=== PATIENT | female | born 1985 | race Caucasian/White ===

== ENCOUNTER 2020-05-07 20:25 | Outpatient (CLI) | payer BC, OTHER ==
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
[2020-05-08 02:06] VITALS: BP 129/83; PULSE 94; RESP 18; TEMP 96.8
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
== END 2020-05-08 01:08 | disposition home or self-care (01) ==
LOC: FBPOP 20:25
PROVIDERS: ATTEND Obstetrics & Gynecology
DX: O16.2 Unspecified maternal hypertension, second trimester (principal); V43.52XA Car driver injured in collision with other type car in traffic accident, initial encounter
CPT/HCPCS: 99213

== ENCOUNTER 2020-06-10 17:35 | Outpatient (CLI) | payer BC, OTHER ==
[2020-06-10 18:52] VITALS: BP 113/69; PULSE 88; RESP 16; TEMP 97.5
--- NOTE | 2020-06-16 06:47 | P.MSEPDOC ---
Presenting Problems - Arrival Data Date of Arrival on Unit: 06/10/20 Time of Arrival on Unit: 17:35 Mode of Transport: Ambulatory - Complaint OB-Reason for Admission/Chief Complaint: Observation/Evaluation Comment: Mucus discharge and sharp shooting pain in vagina Medical History - Information : 3 Para: 2 Term: 2 : 0 Abortions: Spontaneous or Elective: 0 Number of Living Children: 2 - Gestational Age Gestational Age by CHRISTINA (wks/days): 29 Weeks and 2 Days - History Complications: Prior Review of Systems - Review of Systems Constitutional: No problems Breast: No problems ENT: No problems Cardiovascular: No problems Respiratory: No problems Gastrointestinal: No problems Genitourinary: No problems Musculoskeletal: No problems Neurological: No problems Skin: No problems Vital Signs - Temperature Temperature: 97.5 F Temperature Source: Temporal Artery Scan - Pulse Right Sitting Brachial Pulse Rate: 88 Pulse Assessment Method: Automatic Cuff - Respirations Respiratory Rate: 16 Oxygen Delivery Method: Room Air O2 Sat by Pulse Oximetry: 98 - Blood Pressure Right Arm Sitting Blood Pressure: 113/69 Blood Pressure Mean: 83 Blood Pressure Source: Automatic Cuff Medical Screen Scoring (Pre) - Cervical Exam Dilation: Exam Deferred Effacement: Exam Deferred Membranes: Intact - Uterine Contractions Frequency: N/A Duration: N/A Intensity: N/A - Maternal Vital Signs Maternal Temperature: N/A Maternal Blood Pressure: N/A Signs of Preeclampsia: N/A Maternal Respirations: N/A - Maternal Trauma Maternal Trauma: N/A - Assessment - Baby A Baseline FHR: 135 Heart Rate - NICHD Category: Category I (Normal) = 0 NST: Reactive Position: N/A Station: N/A - Total Score - Baby A Total Score - Baby A: 0 - Total Score - Baby B Total Score - Baby B: 0 - Total Score - Baby C Total Score - Baby C: 0 - Level of Risk - Baby A Level of Risk - Baby A: Low (0-5) - Level of Risk - Baby B Level of Risk - Baby B: Low (0-5) - Level of Risk - Baby C Level of Risk - Baby C: Low (0-5) Physician Notification (Pre) - Physician Notified Physician Notified Date: 06/10/20 Physician Notified Time: 18:40 New Order Received: Yes - Notification Comment Comment: Joycelyn em\\Dr. Cedeño, advsd pt of Dr. Cheney, 29 05/25, reports to triage. after large "egg white" mucus discharge and sharp shooting pain in vagina. No leaking or. VB. Pt denies contractions. No contrx on monitor, reactive NST. Has appt 06/17 c\\Staci. States to d/c home, follow up as scheduled. Disposition - Disposition OB Disposition: Discharge to home, Written follow up instructions reviewed Discharge Date: 06/10/20 Discharge Time: 18:50 I agree with the RN Medical Screening Exam: Yes Case reviewed; plan agreed upon as documented in EMR&OBIX.: Yes Diagnosis: PELVIC AND PERINEAL PAIN
== END 2020-06-10 18:50 | disposition home or self-care (01) ==
LOC: FBPOP 17:35
PROVIDERS: ATTEND Obstetrics & Gynecology
DX: O26.93 Pregnancy related conditions, unspecified, third trimester (principal); Z3A.29 29 weeks gestation of pregnancy
CPT/HCPCS: 59025; 99213

== ENCOUNTER 2020-07-30 11:45 | Outpatient (CLI) | payer BC, OTHER ==
[2020-07-30] MEDS ORDERED: LACTATED RINGERS 1,000 ML IV SCH (12:45)
[2020-07-30] MEDS ORDERED: LACTATED RINGERS 500 ML IV SCH (12:45)
[2020-07-30 13:02] VITALS: BP 113/75; PULSE 100; RESP 16; TEMP 97
[2020-07-30 13:08] LABS: Basophils % (A) 0 %; Eosinophils # (A) 0.1 k/uL (0-0.7); Eosinophils % (A) 2 %; Lymphocytes # (A) 0.8 k/uL (1.0-4.8); Lymphocytes % (A) 15 %; MCH 28.2 pg (25.0-35.0); MCHC 32.3 g/dL (31.0-37.0); MCV 87.4 fL (80.0-100.0); Mean Platelet Volume 8.9; Monocytes # (A) 0.2 k/uL (0-1.0); Monocytes % (A) 4 %; Neutrophils # (A) 4.3 k/uL (1.3-7.7); Neutrophils % (A) 78 %; Platelet Count 149 k/uL (150-450); RBC 2.25 m/uL (3.80-5.40); RDW 14.7 % (11.5-15.5); WBC 5.5 k/uL (3.8-10.6)
--- NOTE | 2020-07-30 13:17 | US ---
EXAMINATION TYPE: US gallbladder DATE OF EXAM: 07/30/2020 COMPARISON: NONE CLINICAL HISTORY: RUQ pain. N/V today, right sided pain, 36/37 weeks EXAM MEASUREMENTS: Liver Length: 22.3 cm Gallbladder Wall: 0.2 cm CBD: 0.4 cm Right Kidney: 13.9 x 6.7 x 4.9 cm Pancreas: wnl Liver: Enlarged. Gallbladder: wnl Evidence for sonographic Garcia's sign: no CBD: wnl Right Kidney: mild hydronephrosis IMPRESSION: 1. Mild to moderate right hydronephrosis. 2. Hepatomegaly
[2020-07-30 15:37] LABS: ALT 10 U/L (4-34); AST 15 U/L (14-36); African American GFR (CKD) >90 (>60 ml/min/1.73 sqM); Alkaline Phosphatase 75 U/L (38-126); Amylase 51 U/L (30-110); Anion Gap 5 mmol/L; Blood Urea Nitrogen 4 mg/dL (7-17); Calcium 8.3 mg/dL (8.4-10.2); Carbon Dioxide 21 mmol/L (22-30); Chloride 105 mmol/L (98-107); Glucose 79 mg/dL (74-99); Lipase 63 U/L (23-300); Non-African American GFR(CKD) >90 (>60 ml/min/1.73 sqM); Potassium 4.3 mmol/L (3.5-5.1); Sodium 131 mmol/L (137-145); Total Bilirubin 0.7 mg/dL (0.2-1.3); Total Protein 5.8 g/dL (6.3-8.2)
[2020-07-30 16:07] LABS: Basophils % (A) 0 %; Eosinophils # (A) 0.2 k/uL (0-0.7); Eosinophils % (A) 2 %; HCT 33.2 % (34.0-46.0); Lymphocytes # (A) 1.6 k/uL (1.0-4.8); Lymphocytes % (A) 16 %; MCH 28.8 pg (25.0-35.0); MCHC 34.3 g/dL (31.0-37.0); MCV 83.9 fL (80.0-100.0); Mean Platelet Volume 7.5; Monocytes # (A) 0.4 k/uL (0-1.0); Monocytes % (A) 4 %; Neutrophils # (A) 7.4 k/uL (1.3-7.7); Neutrophils % (A) 77 %; Platelet Count 246 k/uL (150-450); RBC 3.96 m/uL (3.80-5.40); RDW 13.9 % (11.5-15.5); WBC 9.6 k/uL (3.8-10.6)
[2020-07-30 16:12] LABS: HGB 11.4 gm/dL (11.4-16.0)
--- NOTE | 2020-07-31 06:37 | P.MSEPDOC ---
Presenting Problems - Arrival Data Date of Arrival on Unit: 07/30/20 Time of Arrival on Unit: 11:52 Mode of Transport: Ambulatory - Complaint OB-Reason for Admission/Chief Complaint: Acute Nausea/Vomiting, Pain Medical History - Information : 3 Para: 2 Number of Living Children: 2 - Gestational Age Gestational Age by CHRISTINA (wks/days): 36 Weeks and 3 Days - History Complications: Prior Review of Systems - Review of Systems Constitutional: No problems Breast: No problems ENT: No problems Cardiovascular: No problems Respiratory: No problems Gastrointestinal: No problems Genitourinary: No problems Musculoskeletal: No problems Neurological: No problems Skin: No problems Vital Signs - Temperature Temperature: 97.0 F - Pulse Right Sitting Brachial Pulse Rate: 100 Pulse Assessment Method: Automatic Cuff - Respirations Respiratory Rate: 16 Oxygen Delivery Method: Room Air O2 Sat by Pulse Oximetry: 97 - Blood Pressure Right Arm Sitting Blood Pressure: 113/75 Blood Pressure Mean: 87 Blood Pressure Source: Automatic Cuff Medical Screen Scoring (Pre) - Cervical Exam Dilation: Exam Deferred Effacement: Exam Deferred - Uterine Contractions Frequency: N/A Duration: N/A Intensity: N/A - Maternal Vital Signs Maternal Temperature: N/A Maternal Blood Pressure: N/A Signs of Preeclampsia: N/A Maternal Respirations: N/A - Maternal Trauma Maternal Trauma: N/A - Assessment - Baby A Baseline FHR: 130 Heart Rate - NICHD Category: Category I (Normal) = 0 NST: Reactive Position: N/A Station: N/A - Total Score - Baby A Total Score - Baby A: 0 - Total Score - Baby B Total Score - Baby B: 0 - Total Score - Baby C Total Score - Baby C: 0 - Level of Risk - Baby A Level of Risk - Baby A: Low (0-5) - Level of Risk - Baby B Level of Risk - Baby B: Low (0-5) - Level of Risk - Baby C Level of Risk - Baby C: Low (0-5) Physician Notification (Pre) - Physician Notified Physician/Practitioner Notifed:: Dr Small New Order Received: No Disposition - Disposition OB Disposition: Discharge to home Discharge Date: 07/30/20 Discharge Time: 16:37 I agree with the RN Medical Screening Exam: Yes Case reviewed; plan agreed upon as documented in EMR&OBIX.: Yes Diagnosis: PAIN, UNSPECIFIED (Patient presents to labor and delivery with onset of right upper quadrant pain. She's also having some nausea and vomiting. Examination shows her abdomen obese soft tender to deep palpation in the right upper quadrant. Evaluation included a right upper quadrant ultrasound which was negative except for some mild right hydronephrosis which is typical . Initial CBC showed a hemoglobin is 6 however this was drawn just near the IV so a emergent repeat blood work was done and her CBC and chemistry panel was normal. heart tones are category 1 without any decelerations and very reassuring. Patient was monitored well over 4 hours and felt that she wanted to go home. I did offer her to stay for observation and pain control however she elected to go home. Follow-up with me in the office. She given indications to return. At this point there is no evidence of maternal or compromise.)
[2020-07-31 16:39] LABS: HGB 6.3 gm/dL (11.4-16.0)
[2020-07-31 16:40] LABS: HCT 19.7 % (34.0-46.0)
== END 2020-07-30 16:25 | disposition home or self-care (01) ==
LOC: FBPOP 11:45
PROVIDERS: ATTEND Obstetrics & Gynecology
DX: O26.893 Other specified pregnancy related conditions, third trimester (principal); R10.11 Right upper quadrant pain; R11.2 Nausea with vomiting, unspecified; Z3A.36 36 weeks gestation of pregnancy
CPT/HCPCS: 59025; 76705; 80053; 82150; 83690; 85025; 87635; 96360; 96361; 99214

== ENCOUNTER 2020-08-20 05:45 | Inpatient (IN) | payer BC, OTHER ==
[2020-08-18 15:12] VITALS: BMI 42.1
--- NOTE | 2020-08-19 08:40 | P.HPOB ---
History of Present Illness H&P Date: 08/19/20 Chief Complaint: Repeat and tubal ligation. This patient is a pleasant 34-year-old 3 para 2 female estimated date of confinement 08/24/2020 estimated gestational age 39-3/7 weeks who presents to labor and delivery for requested repeat section and also requesting permanent sterilization. Patient's is complicated by advanced for maternal age. Patient had a normal maternity T 21 and normal testing. Patient did not want a quad screen or MFM referral. Patient does have a previous child with a club foot did not want any more extensive ultrasounds. Patient is done childbearing is requesting permanent sterilization at this time as well. Review of Systems Genitourinary: Reports Menstruation: Reports amenorrhea Past Medical History Additional Past Medical History / Comment(s): UMBILICAL HERNIA. EXTRUDED DISC L4-L5 History of Any Multi-Drug Resistant Organisms: None Reported Past Surgical History: Section, Orthopedic Surgery Additional Past Surgical History / Comment(s): RT KNEE SX X4. C-SEC X 3. RAPID PALATE SX Past Anesthesia/Blood Transfusion Reactions: Previous Problems w/ Anesthesia Additional Past Anesthesia/Blood Transfusion Reaction / Comment(s): B/P WILL GO EITHER HIGH OR LOW WITH ANESTHESIA Past Psychological History: No Psychological Hx Reported Smoking Status: Former smoker Past Alcohol Use History: None Reported Past Drug Use History: None Reported - Past Family History Mother Family Medical History: No Reported History Medications and Allergies Home Medications Medication Instructions Recorded Confirmed Type Omeprazole [PriLOSEC] 20 mg PO AC-BRKFST 05/07/20 08/18/20 History Pnv No.95/Ferrous Fum/Folic AC 1 each PO DAILY 05/07/20 08/18/20 History [ Multivitamin Tablet] Allergies Allergy/AdvReac Type Severity Reaction Status Date / Time latex Allergy Rash/Hives Verified 08/18/20 14:59 vancomycin Allergy Anaphylaxis Verified 08/18/20 14:58 Exam Intake and Output 08/18/20 08/19/20 08/19/20 22:59 06:59 14:59 Other: Weight 116.573 kg - OBG Physical Exam Abdomen: bowel sounds normal, no diffuse tenderness, no bruit present, no guarding noted, no hepatomegaly, no splenomegaly, no mass Vulva: both: normal Vagina: normal moisture, no discharge Cervix: no lesion, no discharge Uterus: enlarged (Fundal height is 39 cm) Results blood work shows she is A-, rubella immune, RPR nonreactive, hepatitis B negative, HIV is nonreactive, Glucola was normal, group B strep was negative, patient received RhoGAM on May 23, ultrasounds have shown normal growth and anatomy, maternity T 21 was 46XX Assessment and Plan Assessment: This is a pleasant 34-year-old 3 para 2 female 39-3/7 weeks gestation who is admitted to labor and delivery for elective repeat section and also requesting permanent sterilization. Plan is repeat low transverse section and bilateral partial salpingectomy. Patient denies have discussed that a tubal ligation is permanent, however there is a failure rate of less than 5 per thousand procedures done. Patient also understands surgery itself and apparently has risks including risks of infection, bleeding, possible injury to bowel, bladder, vessels, and/or other organs. All the patient's questions are answered and a written consent is obtained. (1) 39 weeks gestation of Status: Acute Code(s): Z3A.39 - 39 WEEKS GESTATION OF SNOMED Code(s): 20369441 (2) Elderly multigravida Status: Acute Code(s): O09.529 - SUPERVISION OF ELDERLY MULTIGRAVIDA, UNSPECIFIED TRIMESTER SNOMED Code(s): 744436664 (3) Previous delivery affecting Status: Acute Code(s): O34.219 - MATERNAL CARE FOR UNSP TYPE SCAR FROM PREVIOUS DEL SNOMED Code(s): 523685071 (4) Family planning Status: Acute Code(s): Z30.09 - ENCOUNTER FOR OT GENERAL CNSL AND ADVICE ON CONTRACEPTION SNOMED Code(s): 085282508 (5) Rh negative status during Status: Acute Code(s): O26.899 - OTH RELATED CONDITIONS, UNSPECIFIED TRIMESTER; Z67.91 - UNSPECIFIED BLOOD TYPE, RH NEGATIVE SNOMED Code(s): 140907051
[2020-08-20] MEDS ORDERED: LACTATED RINGERS 1,000 ML IV ONE (05:54)
[2020-08-20] MEDS ORDERED: CITRIC ACID-SODIUM CITRATE 15 ML CUP PO ONE (05:54)
[2020-08-20 06:23] LABS: Basophils % (A) 0 %; Eosinophils # (A) 0.2 k/uL (0-0.7); Eosinophils % (A) 2 %; HCT 32.8 % (34.0-46.0); HGB 11.6 gm/dL (11.4-16.0); Lymphocytes # (A) 1.6 k/uL (1.0-4.8); Lymphocytes % (A) 15 %; MCH 29.6 pg (25.0-35.0); MCHC 35.4 g/dL (31.0-37.0); MCV 83.6 fL (80.0-100.0); Mean Platelet Volume 7.2; Monocytes # (A) 0.4 k/uL (0-1.0); Monocytes % (A) 4 %; Neutrophils # (A) 8.5 k/uL (1.3-7.7); Neutrophils % (A) 79 %; Platelet Count 251 k/uL (150-450); RBC 3.92 m/uL (3.80-5.40); RDW 14.3 % (11.5-15.5); WBC 10.8 k/uL (3.8-10.6)
[2020-08-20] MEDS: LACTATED RINGERS 1,000 ML IV SCH ×2 (06:23→10:36)
[2020-08-20] MEDS ORDERED: KETOROLAC 15 MG/ML 1 ML VIAL ONE (08:23)
[2020-08-20] MEDS ORDERED: MORPHINE SULFATE (PF) 0.3 MG/0.3 ML SYR ONE (08:23)
[2020-08-20] MEDS ORDERED: OXYTOCIN 10 UNIT/ML 1 ML VIAL ONE (08:23)
[2020-08-20] MEDS ORDERED: NALBUPHINE 10 MG/ML (1 ML AMP) ONE (08:23)
[2020-08-20] MEDS ORDERED: ONDANSETRON 4 MG/2 ML VIAL IVP PRN ×2 (08:47→09:18)
[2020-08-20] MEDS ORDERED: diphenhydrAMINE 50 MG/ML 1 ML VIAL IVP PRN ×2 (08:47→09:18)
[2020-08-20] MEDS ORDERED: HYDROmorphone 0.5 MG/0.5 ML SYRINGE IVP PRN (08:47)
[2020-08-20] MEDS ORDERED: KETOROLAC 15 MG/ML 1 ML VIAL IVP PRN (08:47)
[2020-08-20] MEDS ORDERED: NALOXONE 0.4 MG/ML 1 ML VIAL IV PRN ×2 (08:47→09:18)
--- NOTE | 2020-08-20 09:15 | P.OP ---
Date of Procedure: 08/20/20 Preoperative Diagnosis: #1: 39-3/7 week intrauterine . #2: Previous section desires repeat. #3: Multi parity desires permanent sterilization. #4: Elderly multiparous Postoperative Diagnosis: #1: Same. #2: Omental adhesions. Procedure(s) Performed: #1: Repeat low transverse section. #2: Bilateral partial salpingectomy. Anesthesia: spinal Surgeon: [employer] Management Information Systems Director #1: Landon Patterson Estimated Blood Loss (ml): 600 Pathology: other (Placenta and bilateral fallopian tube segments) Condition: stable Disposition: floor Indications for Procedure: please see dictated H&P for intimate details of this patient's admission. in brief summary this is a pleasant 34-year-old 3 para 2 female 39-3/7 weeks who presents to labor and delivery for elective repeat section and also requesting permanent sterilization. patient understands a tubal ligation is considered permanent however is a failure of less than 5 per thousand procedures done. she also understands surgery itself and apparently has risks including risks of infection, bleeding, possible injury bowel, bladder, vessels, and/or other organs. all the patient's questions are answered and a written consent is obtained. Operative Findings: this is a vigorous viable female infant Apgars 9 and 9 delivery time was 0836 hours. had spontaneous respiration and good cry and grossly appears normal. Patient had dense omental adhesions to the anterior abdominal wall Description of Procedure: This patient has a Mcconnell catheter placed to straight drain. she is subsequently taken to the operating room where she sat up and spinal anesthetic is administered without incident. appropriate timeout is done. with an adequate level of anesthesia she has abdominal prep and drape. scalpel is then taken in the previous Pfannenstiel is incised. A second scalpel is taken down to the fascia. fascia scored with scalpel and extended bilaterally. fascial incision is carefully dissected off the rectus muscles. Of note there is some dense omental adhesions to the anterior fascial area. user carefully dissected enough to allow us to enter the peritoneum. Bladder blade is then placed. scalpels then taken a low transverse uterine incision is then made. hemostat is then used to enter the uterine cavity bluntly and there is loss of clear fluid. uterine incision is then extended bilaterally bluntly. Infant's head is gently guided through the incision with fundal pressure delivered. Mouth and nares are bulb suctioned. There is a nuchal cord which is easily reduced. With more fundal pressure we then have deliver the rest this 's body. This is a vigorous viable female infant Apgars 9 and 9 delivery time was 0836 hours. After delivery of the the umbilical cord is doubly clamped and cut. Placenta is manually extracted intact. Uterus is then externalized and uterine incision demarcated with Menard clamps. Uterine incision is then closed using 0 Vicryl running locked fashion 2 layers. Excellent hemostasis is noted. Then turned my attention to the left fallopian tube and approximately 4 cm from the cornual insertion a small window is made with Bovie cautery. using a 2-0 silk I doubly ligate a 2 cm segment of the fallopian tube is handed off to pathology. Cauterization is done of the tubal ends. excellent hemostasis is noted. Then turned my attention of the right fallopian tube and using a similar technique a portion of the right fallopian tube is excised and cauterized. This completed the uterus placed back into the abdomen. Final inspection of the tubal ostia show good hemostasis. the omentum was very densely adhered anteriorly therefore the peritoneum is not able to be closed. Rectus muscles however are reapproximated with good reduction of the omentum. the fascia is then closed using 0 PDS. Fascial incision is intact and hemostatic. Subcutaneous tissues and closed using a 3-0 Vicryl. Skin is and closed using milka. All counts are correct 3. there are no complications. and mother are taken to her birthing suite in satisfactory condition.
[2020-08-20] MEDS ORDERED: OXYTOCIN 30 UNITS/500 ML NS 30 UNIT in SALINE 1 500ML.BAG IV SCH (09:18)
[2020-08-20] MEDS ORDERED: METOCLOPRAMIDE 5 MG/ML 2 ML VIAL IVP PRN (09:18)
[2020-08-20] MEDS ORDERED: ZOLPIDEM 5 MG TAB PO PRN (09:18)
[2020-08-20] MEDS ORDERED: diphenhydrAMINE 25 MG CAP PO PRN (09:18)
[2020-08-20] MEDS ORDERED: LANOLIN CREAM 5 GM TUBE TOPICAL PRN (09:18)
[2020-08-20] MEDS ORDERED: SIMETHICONE 80 MG CHEWABLE PO PRN (09:18)
[2020-08-20] MEDS ORDERED: Rhogam IMMUNE GLOBULIN 1,500 UNIT/1 ML IM ONE (09:18)
[2020-08-20] MEDS: SENNOSIDES-DOCUSATE SODIUM 1 EACH TAB PO SCH ×2 (11:09→20:15)
[2020-08-20] MEDS: ACETAMINOPHEN TAB 500 MG TAB PO PRN ×2 (13:30→20:36)
[2020-08-20] MEDS ORDERED: METHYLERGONOVINE 0.2 MG/ML 1 ML AMP IM ONE (15:11)
[2020-08-20 16:08] LABS: Basophils % (A) 0 %; Eosinophils # (A) 0.1 k/uL (0-0.7); Eosinophils % (A) 1 %; HCT 28.3 % (34.0-46.0); Lymphocytes # (A) 1.1 k/uL (1.0-4.8); Lymphocytes % (A) 7 %; MCH 27.9 pg (25.0-35.0); MCV 84.7 fL (80.0-100.0); Mean Platelet Volume 8.5; Monocytes # (A) 0.4 k/uL (0-1.0); Monocytes % (A) 2 %; Neutrophils # (A) 13.5 k/uL (1.3-7.7); Neutrophils % (A) 89 %; Platelet Count 223 k/uL (150-450); RBC 3.35 m/uL (3.80-5.40); RDW 14.7 % (11.5-15.5); WBC 15.2 k/uL (3.8-10.6)
[2020-08-20 16:13] LABS: HGB 9.4 gm/dL (11.4-16.0)
[2020-08-20] MEDS: KETOROLAC 15 MG/ML 1 ML VIAL IVP SCH (16:33)
--- NOTE | 2020-08-20 16:34 | P.PN ---
Progress Note - Text Progress Note Date: 08/20/20 I was called to see patient regards to bleeding. Patient is status post a repeat and tubal ligation this morning. She began having heavy bleeding early this afternoon and uterus is above the umbilicus. I did an exam and vigorous uterine massage and multiple clots were expressed. Findings were consistent with atony. Pitocin had been restarted and she was given one dose of Methergine. She did breast-feed and several other clots were expressed at that time spontaneously. Stat CBC shows a hemoglobin of 9.4. Patient is not tachycardic blood pressures acceptable. I did discuss possible blood transfusion with the patient but this point she would like to just watch him agreeable as long scissors no further bleeding. We'll continue some oral Methergine watch closely.
[2020-08-20] MEDS ORDERED: METHYLERGONOVINE 0.2 MG TAB PO SCH (21:00)
[2020-08-21] MEDS: KETOROLAC 15 MG/ML 1 ML VIAL IVP SCH ×2 (00:13→07:43)
[2020-08-21] MEDS: ACETAMINOPHEN TAB 500 MG TAB PO PRN ×4 (04:43→23:09)
--- NOTE | 2020-08-21 06:17 | P.PNOBGPC ---
Subjective - Subjective Patient reports: Reports appetite normal, Reports voiding normally, Reports pain well controlled, Reports ambulating normally : doing well Objective - Vital Signs Latest vital signs: Vital Signs Temp Pulse Resp BP Pulse Ox 08/21/20 04:54 98 08/21/20 04:53 18 08/21/20 04:00 98.1 F 82 18 118/72 98 08/21/20 03:00 18 08/21/20 00:54 18 98 08/21/20 00:00 97.8 F 75 18 114/68 98 08/20/20 23:00 16 08/20/20 20:32 16 100 08/20/20 20:00 97.2 F L 80 16 122/76 100 08/20/20 19:00 18 08/20/20 17:29 18 08/20/20 16:36 79 18 108/69 98 08/20/20 16:15 82 18 102/56 98 08/20/20 16:00 18 08/20/20 15:46 97.7 F 80 18 97/66 08/20/20 15:45 80 18 97/66 08/20/20 15:30 90 18 99/63 08/20/20 15:00 18 08/20/20 13:00 18 08/20/20 11:47 18 08/20/20 10:57 96.9 F L 79 18 116/68 99 08/20/20 10:29 74 18 113/66 97 08/20/20 10:04 96.8 F L 76 17 124/72 98 08/20/20 09:49 81 17 122/75 98 08/20/20 09:47 17 98 08/20/20 09:34 79 18 119/76 97 08/20/20 09:19 87 18 119/73 97 08/20/20 09:04 96.6 F L 80 18 97/55 97 Intake and Output 08/20/20 08/20/20 08/21/20 14:59 22:59 06:59 Intake Total 1000 Output Total 800 600 Balance 200 -600 Intake: IV 1000 Output: Urine 800 600 Other: Voiding Method Indwelling Catheter Indwelling Catheter # Voids 250 - Exam Lungs: bilateral: normal Chest: Normal S1, Normal S2 Extremities: Present: normal Abdomen: Present: normal appearance, soft. Absent: distention, tenderness Incision: Present: normal, dry, intact Uterus: Present: normal, firm - Labs Labs: Abnormal Lab Results - Last 24 Hours (Table) 08/20/20 08/20/20 Range/Units 06:03 15:55 WBC 10.8 H 15.2 H (3.8-10.6) k/uL RBC 3.35 L (3.80-5.40) m/uL Hgb 9.4 L D (11.4-16.0) gm/dL Hct 32.8 L 28.3 L (34.0-46.0) % Neutrophils # 8.5 H 13.5 H (1.3-7.7) k/uL Assessment and Plan Assessment: Postoperative day #1. Patient is resting without complaints and has had no further bleeding episodes. Vital signs are stable and she is afebrile. Uterus is firm nontender and she is now having normal lochia. Repeat CBC is pending. Patient's having excellent urine output. Plan today is to discontinue her catheter, check CBC, encourage ambulation, allow the patient to shower, and continue routine postoperative care. (1) 39 weeks gestation of Current Visit: No Status: Acute Code(s): Z3A.39 - 39 WEEKS GESTATION OF SNOMED Code(s): 53876395 (2) Elderly multigravida Current Visit: No Status: Acute Code(s): O09.529 - SUPERVISION OF ELDERLY MULTIGRAVIDA, UNSPECIFIED TRIMESTER SNOMED Code(s): 698280122 (3) Previous delivery affecting Current Visit: No Status: Acute Code(s): O34.219 - MATERNAL CARE FOR UNSP TYPE SCAR FROM PREVIOUS DEL SNOMED Code(s): 740203779 (4) Family planning Current Visit: No Status: Acute Code(s): Z30.09 - ENCOUNTER FOR OTH GENERAL CNSL AND ADVICE ON CONTRACEPTION SNOMED Code(s): 157021593 (5) Rh negative status during Current Visit: No Status: Acute Code(s): O26.899 - OTH RELATED CONDITIONS, UNSPECIFIED TRIMESTER; Z67.91 - UNSPECIFIED BLOOD TYPE, RH NEGATIVE SNOMED Code(s): 771195358
--- NOTE | 2020-08-21 06:26 | P.PN ---
Progress Note - Text Progress Note Date: 08/21/20 Postoperative day 1 status post section under spinal anesthesia, and intrathecal morphine given for postoperative analgesia, patient doing well, there is no anesthesia related complications Patient had no headache, vital signs stable Assessment and plan = postop day 1 status post , doing well there is no anesthesia related complication
[2020-08-21] MEDS: FERROUS SULFATE 325 MG TAB PO SCH ×2 (07:44→17:18)
[2020-08-21 07:54] LABS: Basophils % (A) 0 %; Eosinophils # (A) 0.2 k/uL (0-0.7); Eosinophils % (A) 2 %; HCT 23.3 % (34.0-46.0); HGB 8.1 gm/dL (11.4-16.0); Lymphocytes # (A) 1.3 k/uL (1.0-4.8); Lymphocytes % (A) 13 %; MCH 29.7 pg (25.0-35.0); Mean Platelet Volume 7.6; Monocytes # (A) 0.4 k/uL (0-1.0); Monocytes % (A) 4 %; Neutrophils # (A) 7.6 k/uL (1.3-7.7); Neutrophils % (A) 80 %; Platelet Count 217 k/uL (150-450); RBC 2.74 m/uL (3.80-5.40); RDW 14.7 % (11.5-15.5); WBC 9.6 k/uL (3.8-10.6)
[2020-08-21] MEDS: LACTATED RINGERS 1,000 ML IV SCH (10:09)
[2020-08-21] MEDS: SENNOSIDES-DOCUSATE SODIUM 1 EACH TAB PO SCH ×2 (10:10→19:20)
[2020-08-21] MEDS: IBUPROFEN 600 MG TAB PO PRN ×2 (13:50→21:28)
[2020-08-22] MEDS: IBUPROFEN 600 MG TAB PO PRN ×2 (03:33→10:31)
--- NOTE | 2020-08-22 06:50 | P.PNOBGPC ---
Subjective - Subjective Patient reports: Reports appetite normal, Reports voiding normally, Reports pain well controlled, Reports ambulating normally : doing well Objective - Vital Signs Latest vital signs: Vital Signs Temp Pulse Resp BP Pulse Ox 08/22/20 00:00 98.6 F 73 16 101/61 08/21/20 16:00 98.2 F 83 16 133/71 98 08/21/20 08:00 98.1 F 83 16 117/70 98 Intake and Output 08/21/20 08/21/20 08/22/20 14:59 22:59 06:59 Output Total 1000 Balance -1000 Output: Urine 1000 - Exam Lungs: bilateral: normal Chest: Normal S1, Normal S2 Extremities: Present: normal Abdomen: Present: normal appearance, soft. Absent: distention, tenderness Incision: Present: normal, dry, intact Uterus: Present: normal, firm - Labs Labs: Abnormal Lab Results - Last 24 Hours (Table) 08/21/20 Range/Units 05:57 RBC 2.74 L (3.80-5.40) m/uL Hgb 8.1 L (11.4-16.0) gm/dL Hct 23.3 L (34.0-46.0) % Assessment and Plan Assessment: Postoperative day #2. Patient is resting without new complaints. Vital signs are stable and she is afebrile. Uterus is firm nontender she's having normal lo freida. Hemoglobin yesterday was 8.1 which is felt to be appropriate for her amount of atony. Patient is on oral iron. Although she is tired she is otherwise asymptomatic. Patient's baby is having some mild jaundice issues and therefore she plans staying today. Plan today is to continue routine care and she'll be discharged home most likely tomorrow. (1) 39 weeks gestation of Current Visit: No Status: Acute Code(s): Z3A.39 - 39 WEEKS GESTATION OF SNOMED Code(s): 21859546 (2) Elderly multigravida Current Visit: No Status: Acute Code(s): O09.529 - SUPERVISION OF ELDERLY MULTIGRAVIDA, UNSPECIFIED TRIMESTER SNOMED Code(s): 300531419 (3) Previous delivery affecting Current Visit: No Status: Acute Code(s): O34.219 - MATERNAL CARE FOR UNSP TYPE SCAR FROM PREVIOUS DEL SNOMED Code(s): 676244945 (4) Family planning Current Visit: No Status: Acute Code(s): Z30.09 - ENCOUNTER FOR OTH GENERAL CNSL AND ADVICE ON CONTRACEPTION SNOMED Code(s): 902047604 (5) Rh negative status during Current Visit: No Status: Acute Code(s): O26.899 - OTH RELATED CONDITIONS, UNSPECIFIED TRIMESTER; Z67.91 - UNSPECIFIED BLOOD TYPE, RH NEGATIVE SNOMED Code(s): 554916231
[2020-08-22] MEDS: FERROUS SULFATE 325 MG TAB PO SCH ×2 (07:39→17:40)
[2020-08-22] MEDS: ACETAMINOPHEN TAB 500 MG TAB PO PRN ×3 (07:54→21:21)
[2020-08-22] MEDS: SENNOSIDES-DOCUSATE SODIUM 1 EACH TAB PO SCH ×2 (07:55→19:33)
[2020-08-23] MEDS: IBUPROFEN 600 MG TAB PO PRN ×2 (00:09→05:59)
[2020-08-23] MEDS: ACETAMINOPHEN TAB 500 MG TAB PO PRN ×2 (02:52→09:11)
[2020-08-23] MEDS: SENNOSIDES-DOCUSATE SODIUM 1 EACH TAB PO SCH (08:00)
[2020-08-23] MEDS: FERROUS SULFATE 325 MG TAB PO SCH (08:05)
[2020-08-23 08:14] VITALS: BP 106/64; PULSE 95; RESP 18; TEMP 98.3
--- NOTE | 2020-08-23 09:40 | P.DS ---
Providers Date of admission: 08/20/20 05:45 Expected date of discharge: 08/23/20 Attending physician: Mio Small Primary care physician: Stated None - Discharge Diagnosis(es) (1) Status post repeat low transverse section Current Visit: Yes Status: Acute (2) Status post tubal ligation at time of delivery, current hosp Current Visit: Yes Status: Acute (3) hemorrhage Current Visit: Yes Status: Acute Hospital Course: Patient presented for repeat low transverse and tubal ligation. She underwent this procedure without complication. Postoperatively she did have some heavier bleeding. Her hemoglobin went from 11 down to 8. Her vital signs are stable and she feels well so she was placed on iron, and the decision not to transfuse was made. Her incision is clean, dry, intact. She denies nausea, vomiting, chest pain, shortness of breath or any calf pain. She will be discharged home postoperative day #3 in stable condition to follow-up with Dr. Small in one week. Plan - Discharge Summary Discharge Rx Participant: Yes New Discharge Prescriptions: New Ibuprofen [Motrin] 600 mg PO Q6H PRN #40 tab PRN Reason: Pain Ferrous Sulfate [Iron (65 MG Elemental)] 325 mg PO BID-W/MEALS #60 tab oxyCODONE HCL [OxyIR] 5 mg PO Q4HR PRN #18 tab PRN Reason: Pain Scale 4 - 6 No Action Pnv No.95/Ferrous Fum/Folic AC [ Multivitamin Tablet] 1 each PO DAILY Omeprazole [PriLOSEC] 20 mg PO AC-BRKFST Discharge Medication List Omeprazole [PriLOSEC] 20 mg PO AC-BRKFST 05/07/20 [History] Pnv No.95/Ferrous Fum/Folic AC [ Multivitamin Tablet] 1 each PO DAILY 05/07/20 [History] Ferrous Sulfate [Iron (65 MG Elemental)] 325 mg PO BID-W/MEALS #60 tab 08/22/20 [Rx] Ibuprofen [Motrin] 600 mg PO Q6H PRN #40 tab 08/22/20 [Rx] oxyCODONE HCL [OxyIR] 5 mg PO Q4HR PRN #18 tab 08/22/20 [Rx] Follow up Appointment(s)/Referral(s): Mio Small MD [STAFF PHYSICIAN] - 08/28/20 8:30 am (Please see me on October 09 at 9:30 AM as well for a visit.) Patient Instructions/Handouts: (DC) Activity/Diet/Wound Care/Special Instructions: No intercourse or anything per vagina for 6 weeks. No strenuous activity or heavy lifting for 6 weeks. Please call if any fever, chills, excessive vaginal bleeding, and/or abdominal pain. Discharge Disposition: HOME SELF-CARE
== END 2020-08-23 11:33 | disposition home or self-care (01) | DRG 784 ==
LOC: 4FBP 05:45
PROVIDERS: ADMIT Obstetrics & Gynecology; ATTEND Obstetrics & Gynecology
PROC: 0UB70ZZ Excision of Bilateral Fallopian Tubes, Open Approach (ICD-10-PCS; 2020-08-20)
PROC: 30233S1 Transfusion of Nonautologous Globulin into Peripheral Vein, Percutaneous Approach (ICD-10-PCS; 2020-08-20)
PROC: 10D00Z1 Extraction of Products of Conception, Low, Open Approach (ICD-10-PCS; principal; 2020-08-20 08:30)
DX: O34.211 Maternal care for low transverse scar from previous cesarean delivery (principal); O72.1 Other immediate postpartum hemorrhage; Z37.0 Single live birth; Z87.891 Personal history of nicotine dependence; Z3A.39 39 weeks gestation of pregnancy; Z30.2 Encounter for sterilization; Z88.1 Allergy status to other antibiotic agents; Z91.040 Latex allergy status; O26.893 Other specified pregnancy related conditions, third trimester; Z67.91 Unspecified blood type, Rh negative
CPT/HCPCS: 85025; 85461; 86850; 86900; 86901; 88302; 88307